=== PATIENT | female | born 1950 | race Caucasian/White ===

== ENCOUNTER 2019-11-23 11:49 | Day surgery (SDC) | payer MEDICARE, OTHER ==
[~2019-11-23] VITALS: Ht 165.1 cm; Wt 132.9 kg
[~2019-11-23 11:49] MED LIST: ATEN50 PO; Cipro500 MG PO; DICL75ER PO; DOCU100 PO; DULO60 PO; FISH1000 PO; Garlic1 EACH PO; LEVSOD50 PO; MULVITMIND PO; PRED10 PO; TOCO400 PO; TRAZ100 PO; UBID10 PO; [UNRECOGNIZED DRUG - OTHER] PO
== END 2019-11-23 14:05 | disposition home or self-care (01) ==
LOC: ORSCSDS 11:49
PROVIDERS: Internal Medicine Gastroenterology
PROC: 0DB68ZX Excision of Stomach, Via Natural or Artificial Opening Endoscopic, Diagnostic (ICD-10-PCS; principal; 2019-11-23 13:00)
PROC: 0DB98ZX Excision of Duodenum, Via Natural or Artificial Opening Endoscopic, Diagnostic (ICD-10-PCS; principal; 2019-11-23 13:00)
DX: K75.81 Nonalcoholic steatohepatitis (NASH) (principal); I85.00 Esophageal varices without bleeding; K31.7 Polyp of stomach and duodenum; K29.00 Acute gastritis without bleeding; M79.7 Fibromyalgia; E03.9 Hypothyroidism, unspecified; G47.33 Obstructive sleep apnea (adult) (pediatric); I48.91 Unspecified atrial fibrillation; B19.10 Unspecified viral hepatitis B without hepatic coma; D75.1 Secondary polycythemia; R73.03 Prediabetes; E66.9 Obesity, unspecified; Z68.42 Body mass index [BMI] 45.0-49.9, adult; Z79.01 Long term (current) use of anticoagulants; Z79.899 Other long term (current) drug therapy
CPT/HCPCS: 82947; 88305; 88341; 88342; J2704; J7120